=== PATIENT | male | born 1995 | race Caucasian/White ===

== ENCOUNTER 2017-10-03 14:33 | Emergency (ER) | payer MEDICAID ==
[~2017-10-03] VITALS: Ht 182.9 cm; Wt 86.0 kg
[~2017-10-03 14:33] MED LIST: DIPH25CA83 PO
[2017-10-03 14:38] VITALS: BP 136/120
== END 2017-10-03 16:08 | disposition left against medical advice (07) ==
LOC: ER 14:34
DX: L29.0 Pruritus ani (principal); R10.12 Left upper quadrant pain; R11.0 Nausea; Z59.0 Homelessness
CPT/HCPCS: 99281

== ENCOUNTER 2020-06-26 13:13 | Emergency (ER) | payer MEDICAID ==
[~2020-06-26] VITALS: Ht 182.9 cm; Wt 77.3 kg
[2020-06-26] MEDS ORDERED: cephalexin 500mg capsule PO ONE (14:45)
[2020-06-26 14:55] LABS: BASOPHILS # (AUTO) 0.1 X10'3 (0-0.2); BASOPHILS % (AUTO) 0.4 % (0-1); EOSINOPHILS # (AUTO) 0.1 X10'3 (0-0.9); EOSINOPHILS % (AUTO) 0.6 % (0-6); HEMATOCRIT 41.6 % (42.0-52.0); HEMOGLOBIN 14.6 g/dl (14.0-17.9); LYMPHOCYTES # (AUTO) 2.4 X10'3 (1.1-4.8); LYMPHOCYTES % (AUTO) 17.8 % (21-51); MEAN CORPUSCULAR HEMOGLOBIN 30.9 PG (27.0-31.0); MEAN CORPUSCULAR HGB CONC 35.1 g/dL (33.0-36.5); MEAN CORPUSCULAR VOLUME 87.9 FL (78-98); MEAN PLATELET VOLUME 8.4 FL (7.4-10.4); MONOCYTES # (AUTO) 1.7 X10'3 (0-0.9); MONOCYTES % (AUTO) 12.5 % (2-12); NEUTROPHILS # (AUTO) 9.1 X10'3 (1.8-7.7); NEUTROPHILS % (AUTO) 68.7 % (42-75); PLATELET COUNT 242 X10'3 (140-440); RED BLOOD COUNT 4.74 X10'6 (4.70-6.10); RED CELL DISTRIBUTION WIDTH 12.7 % (11.5-14.5); WHITE BLOOD COUNT 13.3 X10'3 (4.5-11.0)
[2020-06-26 15:11] LABS: ALANINE AMINOTRANSFERASE 39 U/L (12-78); ALBUMIN 3.8 G/DL (3.4-5.0); ALKALINE PHOSPHATASE 59 IU/L (46-116); ANION GAP 7 (8-16); ASPARTATE AMINO TRANSFERASE 40 U/L (10-37); BILIRUBIN,TOTAL 1.1 MG/DL (0.1-1.0); BLOOD UREA NITROGEN 17 MG/DL (7-18); BUN/CREATININE RATIO 17.2 (5.4-32.0); CHLORIDE 103 MMOL/L (99-107); CREATININE 0.99 MG/DL (0.60-1.10); GLUCOSE 121 MG/DL (70-104); SODIUM 136 MMOL/L (135-145); TOTAL CARBON DIOXIDE 25.7 MMOL/L (24-32); TOTAL PROTEIN 7.5 G/DL (6.4-8.2); eGFR > 90 ML/MIN
[2020-06-26 15:23] LABS: ETHANOL < 0.010 GM/DL (0.0-0.010)
[2020-06-26] MEDS ORDERED: potassium Cl 20 mEq SR tablet PO ONE (15:30)
--- NOTE | 2020-06-26 15:39 | NUR ---
PT ARRIVED TO ROOM 20 ACCOMPANIED BY LELE SLOAN.
--- NOTE | 2020-06-26 15:55 | NUR ---
PT STATES, " I WAS ON PROZAC 3-4 YEARS AGO AND MADE ME PSYCHOTIC LIKE I WANTED TO HURT PEOPLE SO I STOPPED TAKING IT. "
--- NOTE | 2020-06-26 15:57 | NUR ---
PT STATES IM PARANOID, DELUSIONAL, RACING THOUGHTS IN HEAD.
--- NOTE | 2020-06-26 16:02 | NUR ---
PT CALM, SITTING UP IN BED EATING A SANDWICH AND DRINKING WATER.
[2020-06-26 17:53] LABS: CLARITY,URINE CLEAR (Clear); COLOR,URINE YELLOW (Yellow); GLUCOSE, URINE NEGATIVE (Neg); KETONES,URINE 15 mg/dl (Neg); LEUKOCYTE ESTERASE ,URINE NEGATIVE (Neg); NITRITES, URINE NEGATIVE (Neg); OCCULT BLOOD,URINE NEGATIVE (Neg); PROTEIN,URINE NEGATIVE (Neg); UROBILINOGEN,URINE >=8.0 E.U/dL (0.2-1.0)
[2020-06-26 17:56] LABS: UA COLLECTION TYPE CLN CATCH MIDSTREAM
[2020-06-26 18:03] LABS: URINE AMPHETAMINE SCREEN POSITIVE (Neg); URINE BARBITUATE SCREEN NEGATIVE (Neg); URINE BENZODIAZEPINES SCREEN NEGATIVE (Neg); URINE CANNABINOID SCREEN POSITIVE (Neg); URINE COCAINE SCREEN NEGATIVE (Neg); URINE METHADONE SCREEN NEGATIVE (Neg); URINE OPIATE SCREEN NEGATIVE (Neg); URINE PHENCYCLIDINE SCREEN NEGATIVE (Neg)
--- NOTE | 2020-06-26 18:09 | NUR ---
packet faxed to [facility]
--- NOTE | 2020-06-26 20:14 | NUR ---
Patient in bed with eyes closed.
--- NOTE | 2020-06-26 20:55 | NUR ---
The patient is being evaluated by LELE Magana from [facility].
--- NOTE | 2020-06-26 21:35 | NUR ---
Patient lying in bed in supine position. Eyes are closed.
--- NOTE | 2020-06-26 22:27 | NUR ---
The patient is sleeping in supine position. RR even and unlabored. No s/s of distress.
--- NOTE | 2020-06-26 23:20 | NUR ---
[facility] called and they will present patient to provider. No beds available until tomorrow.
--- NOTE | 2020-06-26 23:56 | NUR ---
The patient is sleeping on his left side.. RR even and unlabored. No s/s of distress.
--- NOTE | 2020-06-27 04:04 | NUR ---
Patient woke up asked for coffee and to close the curtains. Patient was advised of the time of night and he fell back asleep.
[2020-06-27 05:22] VITALS: BP 101/58
[2020-06-27] MEDS ORDERED: hydrOXYzine 25 MG tablet PO ONE (07:00)
--- NOTE | 2020-06-27 07:00 | NUR ---
Pt received sleeping in bed. Pt awoke at 0630 and seemed a little disoriented at first. Pt did get up and brush his teeth and was appropriately interactive with staff but does become suspicious and guarded when he is asked questions about his situation.
[2020-06-27] MEDS ORDERED: nicotine 21mg patch - 24 hr TD SCH (08:00)
[2020-06-27] MEDS ORDERED: hydrOXYzine 25 MG tablet PO PRN (08:00)
[2020-06-27] MEDS: cephalexin 250mg capsule PO SCH ×2 (08:00→08:10)
[2020-06-27] MEDS ORDERED: nicotine 21mg patch - 24 hr TD ONE (08:05)
--- NOTE | 2020-06-27 09:00 | NUR ---
Pt remains asleep in bed without distress.
--- NOTE | 2020-06-27 11:00 | NUR ---
Pt lying quietly in bed, appears to be sleeping without distress.
--- NOTE | 2020-06-27 13:00 | NUR ---
Pt has been sleeping calmly without distress and now is sitting up eating lunch without complaints.
[2020-06-28] MEDS ORDERED: nicotine 21mg patch - 24 hr TD SCH (08:00)
== END 2020-06-27 14:30 ==
LOC: ER 13:13
DX: F32.9 Major depressive disorder, single episode, unspecified (principal); R45.851 Suicidal ideations; L03.113 Cellulitis of right upper limb; E87.6 Hypokalemia; Z59.0 Homelessness; Z79.899 Other long term (current) drug therapy
CPT/HCPCS: 36415; 80053; 80305; 80320; 81003; 84443; 85025; 99285; Q0177

== ENCOUNTER 2020-10-03 07:56 | Emergency (ER) | payer MEDICAID ==
[~2020-10-03] VITALS: Ht 180.3 cm; Wt 81.8 kg
[2020-10-03 08:06] VITALS: BP 122/45
== END 2020-10-03 08:23 | disposition home or self-care (01) ==
LOC: ER 07:56
DX: F15.10 Other stimulant abuse, uncomplicated (principal); Z59.0 Homelessness; Z79.899 Other long term (current) drug therapy
CPT/HCPCS: 99281

== ENCOUNTER 2022-03-31 07:06 | Emergency (ER) | payer MEDICAID ==
[~2022-03-31] VITALS: Ht 182.9 cm; Wt 86.4 kg
[2022-03-31] MEDS ORDERED: AMOX-580 PO (07:32)
[2022-03-31] MEDS ORDERED: NAPR-56 PO (07:32)
[2022-03-31] MEDS ORDERED: amox tr/potassium clavulanate 875/125mg TAB PO ONE (07:35)
[2022-03-31] MEDS ORDERED: naproxen 500mg tablet PO ONE (07:35)
== END 2022-03-31 07:43 | disposition home or self-care (01) ==
LOC: ER 07:06
DX: K02.9 Dental caries, unspecified (principal); K04.7 Periapical abscess without sinus; F17.200 Nicotine dependence, unspecified, uncomplicated; F15.10 Other stimulant abuse, uncomplicated; F32.A Depression, unspecified; Z59.00 Homelessness unspecified
CPT/HCPCS: 99283

== ENCOUNTER 2022-07-25 12:46 | Emergency (ER) | payer MEDICAID ==
[~2022-07-25] VITALS: Ht 182.9 cm; Wt 76.0 kg
[2022-07-25 14:58] VITALS: BP 109/59
== END 2022-07-25 15:17 | disposition home or self-care (01) ==
LOC: ER 12:47
DX: S50.01XA Contusion of right elbow, initial encounter (principal); M25.521 Pain in right elbow; F32.A Depression, unspecified; F15.90 Other stimulant use, unspecified, uncomplicated; Z59.00 Homelessness unspecified; Z79.899 Other long term (current) drug therapy; Y08.89XA Assault by other specified means, initial encounter; Y93.89 Activity, other specified; Y92.89 Other specified places as the place of occurrence of the external cause; Y99.8 Other external cause status
CPT/HCPCS: 73070; 99283; A6449

== ENCOUNTER 2022-12-04 12:14 | Emergency (ER) | payer MEDICAID | END 2022-12-04 15:39 | disposition left against medical advice (07) | LOC: ER 12:15 | DX: Z00.00 Encounter for general adult medical examination without abnormal findings (principal); Z53.21 Procedure and treatment not carried out due to patient leaving prior to being seen by health care provider ==

== ENCOUNTER 2023-04-04 13:27 | Emergency (ER) | payer MEDICAID ==
[~2023-04-04] VITALS: Ht 182.9 cm; Wt 90.9 kg
[2023-04-04 13:42] VITALS: BP 113/68
[2023-04-04 14:36] LABS: CLARITY,URINE CLOUDY (Clear); COLOR,URINE YELLOW (Yellow); GLUCOSE, URINE NEGATIVE (Neg); KETONES,URINE NEGATIVE (Neg); LEUKOCYTE ESTERASE ,URINE NEGATIVE (Neg); NITRITES, URINE NEGATIVE (Neg); OCCULT BLOOD,URINE MODERATE (Neg); PROTEIN,URINE NEGATIVE (Neg); UROBILINOGEN,URINE 0.2 E.U/dL (0.2-1.0)
[2023-04-04 14:46] LABS: UA COLLECTION TYPE CLN CATCH MIDSTREAM
[2023-04-04 14:50] LABS: MUCUS STRANDS MANY /LPF (Neg); SQUAMOUS EPITHELIAL CELL,UR FEW /LPF (FEW)
[2023-04-04 14:52] LABS: COARSE GRANULAR CAST 0-3 /LPF (NEGATIVE)
[2023-04-04 14:53] LABS: BACTERIA,URINE FEW /HPF (Neg); RBC,URINE 20-50 /HPF (0-2)
[2023-04-04 14:54] LABS: CAL OXALATE CRYSTALS FEW /HPF (NEGATIVE)
[2023-04-04 14:55] LABS: WBC,URINE 0-4 /HPF (0-4)
== END 2023-04-04 15:46 | disposition left against medical advice (07) ==
LOC: ER 13:28
DX: R19.7 Diarrhea, unspecified (principal); Z53.21 Procedure and treatment not carried out due to patient leaving prior to being seen by health care provider
CPT/HCPCS: 81001; 99281

== ENCOUNTER 2023-04-21 11:10 | Emergency (ER) | payer MEDICAID ==
[~2023-04-21] VITALS: Ht 182.9 cm; Wt 86.3 kg
[2023-04-21 11:28] VITALS: BP 97/54
[2023-04-21] MEDS ORDERED: LIDOcaine 1% 30ml preserv. free vial IJ ONE (12:10)
[2023-04-21] MEDS ORDERED: bacitracin 15gm ointment TP ONE (12:10)
[2023-04-21] MEDS ORDERED: TETanus/Pertussis (Acell)/Diphther VAC/PF (Tdap-Adult) 0.5ml syringe IMVAC ONE (12:10)
== END 2023-04-21 13:20 | disposition home or self-care (01) ==
LOC: ER 11:11
DX: S61.011A Laceration without foreign body of right thumb without damage to nail, initial encounter (principal); F32.A Depression, unspecified; F15.10 Other stimulant abuse, uncomplicated; Z59.00 Homelessness unspecified; Z56.0 Unemployment, unspecified; Z79.899 Other long term (current) drug therapy; X58.XXXA Exposure to other specified factors, initial encounter; Y93.89 Activity, other specified; Y92.89 Other specified places as the place of occurrence of the external cause; Y99.8 Other external cause status
CPT/HCPCS: 12002; 90715; 99282

== ENCOUNTER 2023-06-16 14:05 | Emergency (ER) | payer MEDICAID ==
[~2023-06-16] VITALS: Ht 182.9 cm; Wt 85.6 kg
[2023-06-16 14:08] VITALS: BP 151/67; PULSE 99; RESP 18; TEMP 98.3; O2SAT 98
[2023-06-16] MEDS ORDERED: NAPR-56 PO (16:22)
[2023-06-16] MEDS ORDERED: CYCL-1 PO (16:22)
== END 2023-06-16 14:52 | disposition left against medical advice (07) ==
LOC: ER 14:06
DX: M54.2 Cervicalgia (principal); Z53.21 Procedure and treatment not carried out due to patient leaving prior to being seen by health care provider
CPT/HCPCS: 99281

== ENCOUNTER 2023-06-16 15:01 | Emergency (ER) | payer MEDICAID ==
[~2023-06-16] VITALS: Ht 180.3 cm; Wt 85.0 kg
[2023-06-16 16:12] VITALS: BP 119/63; PULSE 64; RESP 17; O2SAT 96
[2023-06-16] MEDS ORDERED: cyclobenzaprine 10mg tablet PO ONE (16:20)
[2023-06-16] MEDS ORDERED: ketorolac trometh inj. 60 MG/2 ML VIAL IM ONE (16:20)
[2023-06-16] MEDS ORDERED: NAPR-56 PO (16:22)
[2023-06-16] MEDS ORDERED: CYCL-1 PO (16:22)
== END 2023-06-16 17:02 | disposition home or self-care (01) ==
LOC: ER 15:01
DX: S13.4XXA Sprain of ligaments of cervical spine, initial encounter (principal); X58.XXXA Exposure to other specified factors, initial encounter; Y93.89 Activity, other specified; Y92.89 Other specified places as the place of occurrence of the external cause; Y99.8 Other external cause status
CPT/HCPCS: 96372; 99283; J1885

== ENCOUNTER 2024-04-25 07:05 | Emergency (ER) | payer MEDICAID ==
[~2024-04-25] VITALS: Ht 182.9 cm; Wt 96.3 kg
[~2024-04-25 07:05] MED LIST changes: +CYCL-1 PO
[2024-04-25 07:10] VITALS: BP 138/90; PULSE 98; TEMP 97.5; O2SAT 100
[2024-04-25] MEDS ORDERED: ketorolac trometh. 30mg/ml inj. IM ONE (07:40)
[2024-04-25] MEDS: HYDROcodone/acetaminophen 10/325mg tab PO ONE (07:57)
[2024-04-25 07:58] VITALS: RESP 16
[2024-04-25] MEDS: ketorolac tromethamine 15mg/ml inj. IM ONE (07:58)
== END 2024-04-25 08:58 | disposition home or self-care (01) ==
LOC: ER 07:05
DX: K08.89 Other specified disorders of teeth and supporting structures (principal); Z76.5 Malingerer [conscious simulation]; F32.A Depression, unspecified; F15.90 Other stimulant use, unspecified, uncomplicated; Z56.0 Unemployment, unspecified; Z59.00 Homelessness unspecified; Z88.1 Allergy status to other antibiotic agents
CPT/HCPCS: 96372; 99283; J1885; J7030

== ENCOUNTER 2024-05-04 08:46 | Emergency (ER) | payer MEDICAID | END 2024-05-04 09:19 | disposition left against medical advice (07) | LOC: ER 08:47 | DX: Z00.00 Encounter for general adult medical examination without abnormal findings (principal); Z53.21 Procedure and treatment not carried out due to patient leaving prior to being seen by health care provider ==

== ENCOUNTER 2025-06-26 12:36 | Emergency (ER) | payer SELFPAY ==
[~2025-06-26] VITALS: Ht 182.9 cm; Wt 90.9 kg
[2025-06-26 12:39] VITALS: TEMP 98.2
[2025-06-26 13:31] VITALS: BP 124/77; PULSE 86; O2SAT 99
--- NOTE | 2025-06-26 14:07 | Physician Documentation ---
History of Present Illness ~ Chief Complaint: Overdose Stated Complaint: OVERDOSE Time Seen by MD: 12:40 Primary Medical Doctor: Sharon Thomson [facility] BIB EMS after suspected fentanyl overdose in the field with one round of CPR and narcan 8mg delivered by patient's family members. En route he was stable and alert, oriented, able to endorse smoking fentanyl earlier. Denies other sub stances. Required no further dosing of narcan en route. Medication Reconciliation Allergies: Coded Allergies: clindamycin (Unverified Allergy, Unknown, N/V, 04/25/24) Scheduled PRN Cyclobenzaprine* (Cyclobenzaprine*), 1 TAB PO TID PRN for pain Diphenhydramine Hcl (Benadryl), 1-2 CAP PO Q6H PRN PRN for itching Past Medical History Past Medical History: No Pertinent History, Depression Past Surgical History: no surgical history Alcohol Use: None Drug Use: methamphetamine Lives In: Homeless Occupation: unemployed Review of Systems All Other Systems at this time: Reviewed and Negative Physical Exam Vital Signs: RN Vital Signs have been reviewed: Yes, Temperature: 98.2, Source: Temporal, Heart Rate: 86, Respiratory Rate: 16, BP: 124/77, Pulse Oximetry: 99, Weight: 90.910 Oxygen Flow Rate: 0 Physical Exam HEENT: PERRL, moist oral mucosa, EOMI Pulmonary: No respiratory distress MSK: no deformity Skin: w/d/i, no rash Neuro: alert, nonfocal Psych: normal affect Progress Results/Orders Results/Orders Vital Signs 06/26/25 06/26/25 06/26/25 06/26/25 12:39 13:02 13:05 13:31 Temp 98.2 Pulse 99 86 86 Resp 16 16 16 16 B/P (MAP) 102/64 124/77 (93) 124/77 (93) Pulse Ox 100 98 99 O2 Flow Rate 0 0 Medical Decision Making Findings 29 [place] old male with apparent accidental overdose of opioid, now improved. Observed for some time in the ER, remained alert and awake, no further narcan dosing required, will dispo with return precautions. Differential Dx:Considerations: Include: Alcohol abuse, Drug Overdose- Accidental, Encephalopathy, Respiratory failure, Substance abuse Departure Disposition: 01 HOME / SELF CARE / HOMELESS Impression: Primary Impression: Poisoning by opiate or related narcotic Condition: Stable Discharge Instructions: Accidental Drug Poisoning, Adult Referrals: NO PRIMARY CARE PROVIDER (PCP) Education Educated: Patient Educated regarding: diagnosis, treatment, prognosis, need for follow up Signature Scribe Signature: . Attestation: . EDISON FRASER MD Jun 26, 2025 14:07
[2025-06-26] MEDS ORDERED: NO HOME MEDS (15:04)
[2025-06-26 15:11] LABS: LEUKOCYTE ESTERASE ,URINE NEGATIVE (Neg); NITRITES, URINE NEGATIVE (Neg); OCCULT BLOOD,URINE NEGATIVE (Neg)
[2025-06-26 15:13] LABS: MEAN PLATELET VOLUME 8.4 FL (7.4-10.4); RED CELL DISTRIBUTION WIDTH 13.1 % (11.5-14.5)
[2025-06-26 15:21] LABS: UA COLLECTION TYPE VOIDED
[2025-06-26 15:22] LABS: MUCUS STRANDS FEW /LPF (Neg); SQUAMOUS EPITHELIAL CELL,UR FEW /LPF (FEW)
[2025-06-26 15:44] LABS: CREATININE 0.83 MG/DL (0.60-1.10); TOTAL CARBON DIOXIDE 26.8 MMOL/L (24-32); eCRCL 145 ML/MIN; eGFR > 90 ML/MIN
[2025-06-26 15:47] LABS: ETHANOL < 10 MG/DL (<10)
[2025-06-26 15:57] LABS: URINE AMPHETAMINE SCREEN NEGATIVE (Neg); URINE BARBITUATE SCREEN NEGATIVE (Neg); URINE BENZODIAZEPINES SCREEN NEGATIVE (Neg); URINE CANNABINOID SCREEN POSITIVE (Neg); URINE COCAINE SCREEN NEGATIVE (Neg); URINE METHADONE SCREEN NEGATIVE (Neg); URINE OPIATE SCREEN NEGATIVE (Neg); URINE PHENCYCLIDINE SCREEN NEGATIVE (Neg)
[2025-06-27 12:14] VITALS: RESP 14
[2025-06-29] MEDS ORDERED: BUPR1FIL3 SL (10:41)
[2025-06-29] MEDS ORDERED: CLON0.1T2 PO (10:41)
== END 2025-06-27 14:08 | disposition home or self-care (01) ==
LOC: ER 12:36
DX: T40.602A Poisoning by unspecified narcotics, intentional self-harm, initial encounter (principal); Z88.1 Allergy status to other antibiotic agents; Z88.8 Allergy status to other drugs, medicaments and biological substances; Z20.822 Contact with and (suspected) exposure to COVID-19; Z79.899 Other long term (current) drug therapy; Y92.89 Other specified places as the place of occurrence of the external cause
CPT/HCPCS: 36415; 80048; 80305; 80320; 81001; 84443; 85025; 87811; 99284

== ENCOUNTER 2025-10-06 16:56 | Emergency (ER) | payer MEDICAID ==
[~2025-10-06] VITALS: Ht 182.9 cm; Wt 90.3 kg
[~2025-10-06 16:56] MED LIST changes: +BUPR1FIL3 SL; +CLON0.1T2 PO; -CYCL-1 PO; -DIPH25CA83 PO
--- NOTE | 2025-10-06 17:18 | Physician Documentation ---
History of Present Illness Stated Complaint: HANDS/FEET PAIN Primary Medical Doctor: [facility] Patient is a 30-year-old male that presents to the emergency department for evaluation of toenail infections to all of his toes bilaterally. Patient also has infections and/or bleeding to multiple fingernails bilaterally. Patient also appears to have an area of cellulitis to the anterior portion of his right upper extremity. Patient denies any trauma any known injuries to any of the sites does report that he picks at his toenails and picks at his finger nails and pulse a skin. Patient denies any knowledge of cause of the area of cellulitis to his right upper extremity. Patient reports areas of infection has been present for approximately the last 10 days and worsening in his time. Patient reports recent in persistent use of fentanyl. Patient is quite agitated here in the triage room and defensive when having to answer questions regarding his symptoms. Patient had to be asked to be respectful by both provider's here in the triage room today. Patient reports fevers chills denies nausea vomiting or diarrhea at this time. Patient denies shortness of breath or chest pain. Patient denies any other symptoms at this time. Medication Reconciliation Allergies: Coded Allergies: clindamycin (Unverified Allergy, Unknown, N/V, 04/25/24) Scheduled Buprenorphine Hcl/Naloxone Hcl (Suboxone 8 Mg-2 Mg Sl Film), 1 FILM SL BID Ibuprofen (Ibuprofen), 1 TAB PO Q8H Sulfamethoxazole/Trimethoprim (Bactrim Ds Tablet), 1 TAB PO Q12H Scheduled PRN Clonidine HCl (Clonidine HCl), 0.1 MG PO TID PRN for opioid withdrawl symptoms Past Medical History Past Medical History: No Pertinent History, Depression Past Surgical History: no surgical history Patient History: Patient reports no known family medical history. Alcohol Use: None Drug Use: methamphetamine Lives In: Homeless Occupation: unemployed Review of Systems ROS As stated above in the HPI, otherwise all systems are reviewed and negative. Physical Exam Vital Signs: Temperature: 99.0, Heart Rate: 71, Respiratory Rate: 19, BP: 125/64, Pulse Oximetry: 97, Weight: 90.3 Physical Exam VITALS: Reviewed and as above. GENERAL: Alert, nontoxic appearing, no apparent distress. RESPIRATORY: No increased work of breathing, no respiratory distress, speaking in full clear sentences SKIN: Posterior aspect of right forearm erythematous tender to palpation without significant induration and no fluctuation, several small (subcentimeter) open wounds with minimal purulence to several bilateral fingers and toes and posterior aspect of right hand, these wounds without significant surrounding erythema or induration VITALS: Reviewed and as above. PSYCH: Mildly agitated, no statements of SI or HI Progress Progress Note Approximately 1 hour after patient was discharged nursing staff received a phone call from patient's family member reporting he had made statements of SI, during my examination of the patient he had made no statements of a SI or HI. Medical Decision Making Additional information obtaine: N/A Findings This 30-year-old male presented with several small open wounds covering hands and feet along with an area of erythema and tenderness to posterior aspect of right forearm. Right forearm appears to be uncomplicated cellulitis, other small wounds do appear to have some level of infection though reassuring in his localized with no surrounding cellulitis. Treatment with course of oral antibiotics is indicated. Patient is otherwise well-appearing and appropriate for outpatient follow up with stable vital signs. Patient provided return to care precautions and follow up instructions. Differential Dx:Considerations: Other (Cellulitis, abscess, wound infection, puncture wound, necrotizing fasciitis, sepsis,) Departure Time of Disposition: 19:17 Disposition: 01 HOME / SELF CARE / HOMELESS Impression: Primary Impression: Cellulitis Qualified Codes: L03.113 - Cellulitis of right upper limb Condition: Improved Discharge Instructions: Cellulitis Additional Instructions: Please take antibiotics as prescribed. Please use the prescribed ibuprofen as needed for pain. You may also use Tylenol as needed for breakthrough pain as directed by [id number] packaging. Please follow up with your primary care provider in the next few days. Please return to the emergency department for any new or worsening concerning symptoms. Referrals: NO PRIMARY CARE PROVIDER (PCP) Prescriptions Sulfamethoxazole/Trimethoprim (Bactrim Ds Tablet) 800 Mg-160 Mg Tablet 1 TAB PO Q12H for 10 Days, #20 TAB Prov: VINCE RAINES 10/06/25 Ibuprofen (Ibuprofen) 800 Mg Tablet 1 TAB PO Q8H for pain for 10 Days, #30 TAB 0 Refills Prov: VINCE RAINES 10/06/25 Education Educated: Patient Educated regarding: diagnosis, treatment, prognosis, need for follow up Signature Scribe Signature: No scribe Attestation: The note accurately reflects work and decisions made by me.KATIE Monroe 10/07/25 00:47 AGVINO TALBOT [facility] Oct 06, 2025 17:18 VINCE RAINES [facility] Oct 06, 2025 19:10
[2025-10-06] MEDS ORDERED: SULF1TAB49 PO (19:18)
[2025-10-06] MEDS ORDERED: IBUP-1986 PO (19:18)
[2025-10-06] MEDS: sulfamethoxazole/trimethoprim DS (800/160mg) tablet PO ONE (19:29)
[2025-10-06] MEDS: ibuprofen tablet 400 MG TABLET PO ONE (19:29)
[2025-10-07 00:53] VITALS: BP 125/64; PULSE 71; RESP 19; TEMP 99; O2SAT 97
== END 2025-10-06 19:34 | disposition home or self-care (01) ==
LOC: ER 16:57
DX: L03.113 Cellulitis of right upper limb (principal); F15.90 Other stimulant use, unspecified, uncomplicated; F32.A Depression, unspecified; Z88.1 Allergy status to other antibiotic agents; Z59.00 Homelessness unspecified; Z79.899 Other long term (current) drug therapy; Z56.0 Unemployment, unspecified
CPT/HCPCS: 99283